=== PATIENT | female | born 1985 | race Caucasian/White ===

== ENCOUNTER 2023-06-21 16:20 | Emergency (ER) | payer MEDICAID, SELFPAY ==
--- NOTE | ~2023-06-21 | XR_ITS ---
EXAMINATION: XR CHEST 2 VIEW CLINICAL INFORMATION: Chest pain. COMPARISON: 08/24/2017. TECHNIQUE: PA and lateral views of the chest obtained. FINDINGS: The lungs are clear. There are no pleural effusions. The cardiomediastinal silhouette is normal. XR/XR chest 2V IMPRESSION: No acute cardiopulmonary disease.
--- NOTE | 2023-06-21 16:23 | ED.CHESTPAIN ---
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 She then describes that this turned into a cramp that radiated up her right upper extremity and into her right chest. Patient initially treated herself with 600 mg of ibuprofen and at this time states that she is feeling much better. She denies any associated fever, chills, sore throat or cough and does report 1 prior incident similar to this approximately 3 years ago for which she never was evaluated. Related Data Allergies Allergy/AdvReac Type Severity Reaction Status Date / Time No Known Allergies Allergy Unverified 04/18/20 17:45 Antibiotic Allergy Unknown Uncoded 09/03/14 00:00 Review of Systems Review of Systems: Pertinent positives and negatives as stated in HPI PMFSH Past Medical History Source: nursing notes reviewed Social History Social History Alcohol intake: never Smoked in Last 30 Days: No Use of substances other than those prescribed or required for medical reasons: No Advance Directives: No Advance Directives Information Provided: No Physical Exam Vital Signs: Vital Signs: Last Vital Signs Temp 98.6 F 06/21/23 19:40 Pulse 75 06/21/23 19:40 Resp 14 06/21/23 19:40 BP 152/94 H 06/21/23 19:40 Pulse Ox 98 06/21/23 19:40 O2 Del Method Room Air 06/21/23 19:40 BMI result Body Mass Index 27.1 VITAL SIGNS: Reviewed. GENERAL: Well developed, well nourished, in no acute distress. HEAD: Normocephalic/atraumatic EYES: PERRLA, EOMI EARS: Ext canals without abnormality, TMs non-bulging and non-erythematous NOSE: Nares patent bilateral OROPHARYNX: no oral lesions noted, posterior pharynx clear and non-erythematous without noted tonsillar enlargement/erythema/exudates NECK: Supple, no adenopathy LUNGS: Normal breath sounds. No adventitious sounds or accessory muscle use. SpO2<98> CARDIOVASCULAR: Regular rate and rhythm without noted murmurs ABDOMEN: Soft, non-tender, non-distended with bowel sounds. MUSCULOSKELETAL: No tenderness, deformities, or effusions noted on gross inspection. EXTREMITIES: No cyanosis, clubbing or edema. SKIN: Inspection of the skin reveals no rashes NEUROLOGIC: Alert and oriented x 4. Strength and sensation to light touch were grossly intact x 4, no facial asymmetry, no pronator drift, cranial nerves 2-12 are grossly intact. Course Course Course Narrative: RME performed by Yazmin Wright PA-C. Patient is a 37 year old assigned female at presenting to the emergency department with chest pain and arm pain. Labs, imaging, and swabs ordered. Patient placed back in the waiting room pending room availability and results. Medical Decision Making Medical Decision Making MDM Narrative: 37-year-old female with history and clinical presentation, DDX: Migraine, tension headache, no focal deficits, anxiety, as this has happened previously approximately 3 years ago without residual focal deficits very low clinical suspicion TIA/stroke. I do think that patient will need further outpatient evaluation workup and will also provide her with a Neurology referral. I reviewed all investigations and hematologic indices are negative for leukocytosis/left shift but there is a microcytic anemia without comparison. Coagulation studies are within normal limits. Chemistry indices are grossly within normal limits without JONAH and there is no electrolyte or liver enzyme derangements. High sensitivity troponin is undetectable. Viral illnesses negative for influenza/RSV/COVID. Chest x-ray negative for infiltrate and otherwise my interpretation is in agreement with radiology's impression. My interpretation is that patient may have an underlying condition which requires re-evaluation further outpatient management as this is not been an exhaustive investigation in to autoimmune etiologies. Patient is currently asymptomatic and will provide her with a referral to Neurology and strong recommendations to follow-up with her primary care doctor. She was also provided with return precautions. Differential Diagnosis Differential Diagnoses: The differential diagnosis associated with the presentation includes Please see the discussion above Admission/Observation Consideration of admission/observation: Escalation of care including admission/observation considered Please see the discussion above Lab Data MDM Lab Attestation statement: I reviewed the patient's lab results. Please see the discussion above 06/21/23 16:53 06/21/23 16:53 Labs: Lab Results 06/21/23 Range/Units 16:53 WBC 7.4 (4.8-10.8) X10*3/uL RBC 5.72 H (4.20-5.50) X10*6/uL Hgb 11.1 L (12.0-16.0) g/dl Hct 39.3 (37.0-47.0) % MCV 68.7 L (80.0-98.0) fL MCH 19.4 L (27.0-33.0) pg MCHC 28.2 L (31.0-35.0) g/dl RDW 18.6 H (11.0-16.0) % Plt Count 394 (160-400) X10*3/uL MPV 10.4 (9.4-12.3) fL Immature Gran % (Auto) 0.4 (0.0-0.4) % Neut % (Auto) 72.0 (45-73) % Lymph % (Auto) 20.4 (20-40) % [place] % (Auto) 6.3 (2-11) % Eos % (Auto) 0.5 (0-4) % Baso % (Auto) 0.4 (0-2) % Lymph # (Auto) 1.5 (1.2-4.9) X10*3/uL [place] # (Auto) 0.5 (0.1-1.2) X10*3/uL Eos # (Auto) 0.0 (0.0-0.4) X10*3/uL Baso # (Auto) 0.0 (0.0-0.2) X10*3/uL Abs Immat Gran (auto) 0.03 (0.00-0.03) X10*3/uL Absolute Neuts (auto) 5.3 (2.0-8.3) x10*3/uL Absolute Nucleated RBC 0.000 (0.0-0.012) X10*3/uL Nucleated RBC % (auto) 0.0 (0.0-0.2) /100WBC PT 12.4 (11.1-13.3) SEC INR 1.0 (0.9-1.1) APTT 29.2 (26.0-36.4) SEC Sodium 138 (135-145) mmol/L Potassium 3.6 (3.3-5.1) mmol/L Chloride 106 (96-108) mmol/L Carbon Dioxide 29 (22-29) mmol/L Anion Gap 7 L (12-20) BUN 8 L (9-16) mg/dL Creatinine 0.77 (0.5-1.4) mg/dL Estim Creat Clear Calc 97.1 Estimated GFR > 60 Random Glucose 86 (60-115) mg/dL Calcium 9.1 (8.4-10.2) mg/dL Magnesium 2.3 (1.6-2.6) mg/dL Total Bilirubin 0.3 (0.0-1.0) mg/dL AST 16 (5-31) U/L ALT 16 (0-31) U/L Alkaline Phosphatase 88 (39-117) U/L Troponin I High Sens < 2.7 (<3.5-17.0) ng/L Total Protein 8.1 H (6.5-8.0) g/dL Albumin 4.2 (3.5-5.0) g/dL Influenza Type A (PCR) NEGATIVE (Negative) Influenza Type B (PCR) NEGATIVE (Negative) RSV RNA Qual (PCR) NEGATIVE (Negative) SARS-CoV-2 RNA (RT-PCR) NEGATIVE (Negative) Independent Interpretation I performed an independent interpretation of an: EKG Interpretation: Normal sinus rhythm, HR-67, no STEMI, MN/QRS/QTC is within normal limits. Radiology Impression Discussion of test interpretation with radiology: I have reviewed the radiologist's reading. Radiologist Impression: Please see the discussion above External Record Review External record reviewed: Outpatient record and Prior outpatient labs Discharge Plan Discharge Clinical Impression: Migraine Patient Disposition: Home, Self-Care Instructions: Migraine Headache (ED) Additional Instructions: 1. Recomiende un seguimiento con watt m?dico de atenci?n primaria en los pr?ximos 1 o 2 d?as para programar calvin lisa para calvin reevaluaci?n y m?s investigaciones sobre lobo s?ntomas actuales. 2. Recomiende llevar un diario de lobo silvino de han adem?s de los s?ntomas para ayudarlo mejor en el diagn?stico. 3. Le he proporcionado calvin derivaci?n para seguimiento con neurolog?a y deber? llamar al consultorio para programar calvin lisa para calvin reevaluaci?n y un mayor manejo ambulatorio. Regrese a la nayely de emergencias si los s?ntomas empeoran. 1. Recommend follow-up with your primary care doctor in the next 1-2 days to set up an appointment for re-evaluation and further investigations in to your current symptoms. 2. Recommend keeping a journal of your headaches in addition to the symptoms to better assist you in diagnoses. 3. I have provided you with a referral to follow-up with neurology and you will need to call the office to set up an appointment for re-evaluation and further outpatient management. Return to the ER for any worsening symptoms. Referrals: Valdo Hoffman MD [Physician] - Print Language: Guamanian
--- NOTE | 2023-06-21 16:24 | ECG_ITS ---
Test Reason : CHEST PAIN Blood Pressure : / mmHG Vent. Rate : 067 BPM Atrial Rate : 067 BPM P-R Int : 150 ms QRS Dur : 072 ms QT Int : 402 ms P-R-T Axes : 044 049 017 degrees QTc Int : 424 ms Normal sinus rhythm Normal ECG When compared with ECG of 23-AUG-2017 23:48, No significant change was found Referred By: Generic ED Physician Electronically Signed By:ABRAM JACQUES MD
[2023-06-21 16:25] VITALS: BP 130/88; PULSE 85; O2SAT 98
[2023-06-21 16:56] VITALS: BP 139/93; PULSE 79; RESP 16; TEMP 36.3; O2SAT 100; BMI 27.1
[2023-06-21 16:58] LABS: MANUAL DIFF FLAG NO
[2023-06-21 17:05] LABS: Basophils Percent Auto 0.4 % (0-2); Eosinophils Percent Auto 0.5 % (0-4); Hematocrit 39.3 % (37.0-47.0); Hemoglobin 11.1 g/dl (12.0-16.0); Imm Gran Abs Auto 0.03 X10*3/uL (0.00-0.03); Imm Gran Pct Auto 0.4 % (0.0-0.4); Lymphocytes Absolute Auto 1.5 X10*3/uL (1.2-4.9); Lymphocytes Percent Auto 20.4 % (20-40); Mean Corpuscular HGB Conc 28.2 g/dl (31.0-35.0); Mean Corpuscular Hemoglobin 19.4 pg (27.0-33.0); Mean Corpuscular Volume 68.7 fL (80.0-98.0); Mean Platelet Volume 10.4 fL (9.4-12.3); Monocytes Absolute Auto 0.5 X10*3/uL (0.1-1.2); Monocytes Percent Auto 6.3 % (2-11); Neutrophils Absolute Auto 5.3 x10*3/uL (2.0-8.3); Platelet Count 394 X10*3/uL (160-400); Red Blood Count 5.72 X10*6/uL (4.20-5.50); Red Cell Distribution Width 18.6 % (11.0-16.0); White Blood Count 7.4 X10*3/uL (4.8-10.8)
[2023-06-21 17:06] LABS: Prothrombin Time 12.4 SEC (11.1-13.3)
[2023-06-21 17:08] LABS: Partial Thromboplastin Time 29.2 SEC (26.0-36.4)
[2023-06-21 17:15] LABS: Alanine Aminotransferase 16 U/L (0-31); Albumin Level 4.2 g/dL (3.5-5.0); Alkaline Phosphatase 88 U/L (39-117); Anion Gap 7 (12-20); Aspartate Amino Transferase 16 U/L (5-31); Bilirubin Total 0.3 mg/dL (0.0-1.0); Blood Urea Nitrogen 8 mg/dL (9-16); Calcium 9.1 mg/dL (8.4-10.2); Carbon Dioxide 29 mmol/L (22-29); Chloride 106 mmol/L (96-108); Creatinine Clr Calc Pharmacy 97.1; Estimated Glomerular Filt Rate > 60; Glucose Random 86 mg/dL (60-115); Magnesium 2.3 mg/dL (1.6-2.6); Potassium 3.6 mmol/L (3.3-5.1); Sodium 138 mmol/L (135-145); Total Protein 8.1 g/dL (6.5-8.0)
[2023-06-21 17:23] LABS: Troponin-I High Sensitivity < 2.7 ng/L (<3.5-17.0)
[2023-06-21 17:39] LABS: Influenza A PCR NEGATIVE (Negative); Influenza B PCR NEGATIVE (Negative); Resp Syncy Virus RNA Qual PCR NEGATIVE (Negative); SARS COV2 PCR INHOUSE NEGATIVE (Negative)
[2023-06-21 19:40] VITALS: BP 152/94; PULSE 75; RESP 14; TEMP 37; O2SAT 98
[2023-06-21 22:32] VITALS: BP 166/96; PULSE 72; RESP 18; O2SAT 97
== END 2023-06-21 22:34 | disposition home or self-care (01) ==
PROVIDERS: Physician Assistant Medical; Emergency Provider Student in an Organized Health Care Education/Training Program
DX: G43.909 Migraine, unspecified, not intractable, without status migrainosus (principal); I10 Essential (primary) hypertension; Z20.822 Contact with and (suspected) exposure to COVID-19; Z20.828 Contact with and (suspected) exposure to other viral communicable diseases
CPT/HCPCS: 0241U; 71046; 80053; 83735; 84484; 85025; 85610; 85730; 93005; 99283; 99284

== ENCOUNTER 2023-08-30 09:17 | Outpatient (REF) | payer MEDICAID, SELFPAY ==
[2023-08-30 11:15] LABS: MANUAL DIFF FLAG NO
[2023-08-30 11:25] LABS: Basophils Percent Auto 0.7 % (0-2); Eosinophils Absolute Auto 0.2 X10*3/uL (0.0-0.4); Eosinophils Percent Auto 2.8 % (0-4); Hematocrit 37.7 % (37.0-47.0); Hemoglobin 10.8 g/dl (12.0-16.0); Imm Gran Abs Auto 0.01 X10*3/uL (0.00-0.03); Imm Gran Pct Auto 0.2 % (0.0-0.4); Lymphocytes Absolute Auto 2.2 X10*3/uL (1.2-4.9); Lymphocytes Percent Auto 41.4 % (20-40); Mean Corpuscular HGB Conc 28.6 g/dl (31.0-35.0); Mean Corpuscular Hemoglobin 19.6 pg (27.0-33.0); Mean Corpuscular Volume 68.5 fL (80.0-98.0); Mean Platelet Volume 10.4 fL (9.4-12.3); Monocytes Absolute Auto 0.5 X10*3/uL (0.1-1.2); Monocytes Percent Auto 9.6 % (2-11); Neutrophils Absolute Auto 2.4 x10*3/uL (2.0-8.3); Neutrophils Percent Auto 45.3 % (45-73); Platelet Count 389 X10*3/uL (160-400); Red Cell Distribution Width 19.8 % (11.0-16.0); White Blood Count 5.3 X10*3/uL (4.8-10.8)
[2023-08-30 11:56] LABS: Alanine Aminotransferase 16 U/L (0-31); Alkaline Phosphatase 87 U/L (39-117); Anion Gap 9 (12-20); Aspartate Amino Transferase 15 U/L (5-31); Bilirubin Total 0.3 mg/dL (0.0-1.0); Blood Urea Nitrogen 11 mg/dL (9-16); Carbon Dioxide 26 mmol/L (22-29); Chloride 108 mmol/L (96-108); Cholesterol 172 mg/dL (<200); Estimated Glomerular Filt Rate > 60; Glucose Random 105 mg/dL (60-115); HDL Cholesterol 41 mg/dL (>40); LDL Cholesterol Calculated 118 mg/dL (<100); Potassium 4.1 mmol/L (3.3-5.1); Sodium 139 mmol/L (135-145); Total Protein 7.8 g/dL (6.5-8.0); Triglycerides 67 mg/dL (<150)
[2023-08-30 13:19] LABS: ~Hepatitis C Antibody Nonreactive (Nonreactive)
[2023-09-02 19:09] LABS: HIV RNA PCR Qn Copies Not Detected Copies/mL; HIV RNA PCR Qn Log Copies Not Detected Log cps/mL
== END 2023-08-30 09:18 | disposition home or self-care (01) ==
LOC: HO.HHCL 09:17
PROVIDERS: Visit Provider Nurse Practitioner Family
DX: Z00.00 Encounter for general adult medical examination without abnormal findings (principal); I10 Essential (primary) hypertension; Z86.2 Personal history of diseases of the blood and blood-forming organs and certain disorders involving the immune mechanism
CPT/HCPCS: 36415; 80053; 80061; 85025; 86803; 87536; 87900

== ENCOUNTER 2023-10-04 08:05 | Outpatient (REF) | payer MEDICAID, SELFPAY ==
[2023-10-04 12:21] LABS: Anion Gap 12 (12-20); Blood Urea Nitrogen 10 mg/dL (9-16); Calcium 8.9 mg/dL (8.4-10.2); Carbon Dioxide 24 mmol/L (22-29); Chloride 106 mmol/L (96-108); Estimated Glomerular Filt Rate > 60; Glucose Random 97 mg/dL (60-115); Iron 25 mcg/dL (30-160); Percent Iron Saturation 6 % (15-50); Potassium 4.2 mmol/L (3.3-5.1); Sodium 138 mmol/L (135-145); TSH reflex Free T4 0.71 uIU/mL (0.32-4.0); Total Iron Binding Capacity 413 mcg/dL (228-428); Unsaturated Iron Binding 388 ug/dL
[2023-10-04 12:34] LABS: Creatinine Urine 328.13 mg/dL; Microalbum/Creatinine Ratio Ur 25.5 ug/mg cr (<30)
== END 2023-10-04 08:06 | disposition home or self-care (01) ==
LOC: HO.HHCL 08:05
PROVIDERS: Visit Provider Nurse Practitioner Family
DX: I10 Essential (primary) hypertension (principal); D50.0 Iron deficiency anemia secondary to blood loss (chronic)
CPT/HCPCS: 36415; 80048; 82043; 82570; 83540; 84443

== ENCOUNTER 2023-11-08 16:00 | Outpatient (RCR) | payer MEDICAID, SELFPAY ==
[2023-10-14 17:04] VITALS: BP 120/82
== END 2023-12-28 13:23 | disposition home or self-care (01) ==
LOC: HO.PT 16:00
PROVIDERS: PCP Nurse Practitioner Family; Visit Provider Nurse Practitioner Family
DX: M54.2 Cervicalgia (principal)
CPT/HCPCS: 97110; 97140; 97161